=== PATIENT | male | born 1950 ===

== ENCOUNTER 2018-08-09 09:02 | Emergency (ER) | payer SELFPAY ==
[2018-08-09 09:06] VITALS: RESP 16; TEMP 99.4
--- NOTE | 2018-08-09 09:11 | C.PDOC ---
Time Seen by Provider: 08/09/18 09:07 Chief Complaint (Nursing): Male Genitourinary Past Medical History Vital Signs: Last Vital Signs Temp 99.4 F 08/09/18 09:05 Pulse 67 08/09/18 09:05 Resp 16 08/09/18 09:05 BP 183/61 H 08/09/18 09:05 Pulse Ox 98 08/09/18 09:05 ED Course And Treatment O2 Sat by Pulse Oximetry: 98 Disposition - Disposition
[2018-08-09 09:31] VITALS: BP 160/94; PULSE 89; O2SAT 99
--- NOTE | 2018-08-09 10:13 | C.PDOC ---
History Of Present Illness 67 y/o male presents to the ER for little catheter removal. Patient states that he was evaluated at [facility] [place] and he had little catheter placed for urinary retention. Patient reports that he was supposed to follow up with , urologist today but he decided to come to the ER. Denies having fever and chills. Time Seen by Provider: 08/09/18 09:07 Chief Complaint (Nursing): Male Genitourinary History Per: Patient History/Exam Limitations: no limitations Past Medical History Reviewed: Historical Data, Nursing Documentation, Vital Signs Vital Signs: Last Vital Signs Temp 99.4 F 08/09/18 09:05 Pulse 89 08/09/18 09:29 Resp 16 08/09/18 09:05 BP 160/94 H 08/09/18 09:29 Pulse Ox 99 08/09/18 09:29 Primary Care Provider: FAMILY PROVIDER,NO - Medical History PMH: No Chronic Diseases Surgical History: No Surg Hx Family History: States: No Known Family Hx - Social History Hx Alcohol Use: No Hx Substance Use: No - Immunization History Hx Tetanus Toxoid Vaccination: No Hx Influenza Vaccination: No Hx Pneumococcal Vaccination: No Review Of Systems Except As Marked, All Systems Reviewed And Found Negative. Constitutional: Negative for: Fever, Chills Physical Exam - Physical Exam Appears: Non-toxic, No Acute Distress Skin: Normal Color, Warm, Dry Head: Atraumatic, Normacephalic Eye(s): bilateral: Normal Inspection Nose: Normal Oral Mucosa: Moist Neck: Supple Chest: Symmetrical Gastrointestinal/Abdominal: Normal Exam, Soft, No Tenderness, No Guarding, No Rebound Male Genital: Other (little catheter draining tyson colored urine) Neurological/Psych: Oriented x3, Normal Speech ED Course And Treatment O2 Sat by Pulse Oximetry: 99 (RA) Pulse Ox Interpretation: Normal Disposition Counseled Patient/Family Regarding: Need For Followup - Disposition Referrals: Gume Krishnan MD [Medical Doctor] - Disposition: HOME/ ROUTINE Disposition Time: 09:30 Condition: STABLE Additional Instructions: Follow up with Dr Ludwig for your appointment today Return to ED if any increase symptoms Instructions: Little Catheter, Male Forms: [facility] (Barbadian) Print Language: [place] - POA Present On Arrival: None - Clinical Impression Clinical Impression: Little catheter in place - PA / SERIALS LIBRARIAN / Resident Statement MD/DO has reviewed & agrees with the documentation as recorded. - Scribe Statement The provider has reviewed the documentation as recorded by the Scribe Srinivas Ivan Provider Attestation All medical record entries made by the Chivoibe were at my direction and personally dictated by me. I have reviewed the chart and agree that the record accurately reflects my personal performance of the history, physical exam, medical decision making, and the department course for this patient. I have also personally directed, reviewed, and agree with the discharge instructions and disposition.
== END 2018-08-09 09:41 | disposition home or self-care (01) ==
LOC: C.ER 09:02
DX: Z46.6 Encounter for fitting and adjustment of urinary device (principal)